=== PATIENT | female | born 1995 | race Caucasian/White ===

== ENCOUNTER 2017-02-25 12:37 | Outpatient (CLI) | payer BC | END 2017-02-25 12:38 | disposition home or self-care (01) | LOC: LAB.R 12:37 | PROVIDERS: ATTEND Physician Assistant Medical | DX: Z11.4 Encounter for screening for human immunodeficiency virus [HIV] (principal) | CPT/HCPCS: 87491; 87591 ==

== ENCOUNTER 2018-07-07 14:04 | Outpatient (CLI) | payer BC | END 2018-07-07 23:59 | disposition home or self-care (01) | LOC: LAB.R 14:04 | PROVIDERS: ATTEND Registered Nurse | DX: N76.0 Acute vaginitis (principal) | CPT/HCPCS: 87491; 87591 ==

== ENCOUNTER 2018-07-14 20:27 | Outpatient (CLI) | payer BC ==
--- NOTE | 2018-07-14 23:53 | Ultrasound Report ---
Reason: CONTRACEPTIVE MANAGEMENT Procedure Date: 07/14/2018 Accession Number: [id number] / [id number] Procedure: US - Pelvic w/Transvaginal CPT Code: FULL RESULT: EXAM: PELVIC ULTRASOUND EXAM DATE: 07/14/2018 09:26 PM. CLINICAL HISTORY: CONTRACEPTIVE MANAGEMENT. History of IUD. COMPARISON: PELVIC W/TRANSVAGINAL 06/24/2015 3:34 PM. TECHNIQUE: Realtime transabdominal pelvic scan performed to identify the uterus and adnexa and as an overview of other pelvic structures, followed by transvaginal scan to provide greater detail of the uterus and adnexa, with static image documentation. FINDINGS: Uterus: 7.9 x 3.9 x 5.7 cm, volume 92 cc. Anteverted position. Normal overall size and echotexture. Masses: None. Endometrium: 9 mm. IUD appears to extend to the uterine fundus. Cervix: Probable IUD strings in the endocervical canal. Right Ovary: 5.0 x 4.5 x 4.9 cm, volume 58 cc. Cyst measuring 2.4 x 2.0 x 3.2 cm. Flow seen in the ovary. Left Ovary: 2.7 x 2.9 x 1.5 cm, volume 6.2 cc. Small cyst measuring 2.4 x 1.1 x 2.0 cm. Blood flow seen in the ovary. Free Fluid: None. Other: None. IMPRESSION: 1. IUD appears to be in the endometrial cavity extending to the fundus. 2. Enlarged right ovary measuring 58 cc with cyst measuring 2.4 x 2.0 x 3.2 cm. No torsion identified. 3. Normal sized left ovary measuring 6.2 cc with cyst measuring 2.4 x 1.1 x 2.0 cm. RADIA
== END 2018-07-14 20:28 | disposition home or self-care (01) ==
LOC: DI 20:27
PROVIDERS: ATTEND Registered Nurse
DX: Z30.9 Encounter for contraceptive management, unspecified (principal); Z30.431 Encounter for routine checking of intrauterine contraceptive device; N83.201 Unspecified ovarian cyst, right side
CPT/HCPCS: 76830; 76856

== ENCOUNTER 2020-07-18 14:25 | Outpatient (CLI) | payer BC, MEDICAID ==
[2020-07-18 18:47] LABS: BASOPHILS # (AUTO) 0.1 10^3/uL (0.0-0.1); BASOPHILS % (AUTO) 0.8 %; EOSINOPHILS # (AUTO) 0.1 10^3/uL (0.0-0.7); EOSINOPHILS % (AUTO) 1.7 %; LYMPHOCYTES # (AUTO) 1.4 10^3/uL (1.5-3.5); LYMPHOCYTES % (AUTO) 22.1 %; MEAN CORPUSCULAR HEMOGLOBIN 31.4 pg (27.0-31.0); MEAN CORPUSCULAR HGB CONC 33.9 g/dL (32.0-36.0); MEAN CORPUSCULAR VOLUME 92.6 fL (81.0-99.0); MONOCYTES # (AUTO) 0.4 10^3/uL (0.0-1.0); MONOCYTES % (AUTO) 5.6 %; NEUTROPHILS # (AUTO) 4.4 10^3/uL (1.5-6.6); NEUTROPHILS % (AUTO) 69.5 %; PLT - PLATELET COUNT 311 10^3/uL (130-450); RED BLOOD COUNT 4.46 10^6/uL (4.20-5.40); RED CELL DISTRIBUTION WIDTH 11.9 % (12.0-15.0); WHITE BLOOD COUNT 6.4 x10^3/uL (4.8-10.8)
[2020-07-18 18:59] LABS: ALBUMIN 4.8 g/dL (3.2-5.5); ALBUMIN/GLOBULIN RATIO 1.8 (1.0-2.2); BILIRUBIN,TOTAL 0.9 mg/dL (0.2-1.0); CALCIUM 9.6 mg/dL (8.5-10.3); CREATININE 0.6 mg/dL (0.4-1.0); TOTAL PROTEIN 7.5 g/dL (6.7-8.2)
[2020-07-18 19:12] LABS: HCG,QUALITATIVE BLOOD NEGATIVE
== END 2020-07-18 23:59 | disposition home or self-care (01) ==
LOC: LAB.N 14:25
PROVIDERS: ATTEND Nurse Practitioner
DX: R10.9 Unspecified abdominal pain (principal)
CPT/HCPCS: 36415; 80053; 82150; 83690; 84703; 85025

== ENCOUNTER 2020-07-21 11:56 | Outpatient (CLI) | payer BC ==
[2020-07-21 19:46] LABS: H. PYLORIS ANTIGEN STL NEGATIVE (Negative)
== END 2020-07-21 11:57 | disposition home or self-care (01) ==
LOC: LAB.N 11:56
PROVIDERS: ATTEND Family Medicine
DX: R10.9 Unspecified abdominal pain (principal)
CPT/HCPCS: 36415; 82274; 85651; 86038; 86140; 87338